=== PATIENT | female | born 2005 | race Caucasian/White ===

== ENCOUNTER 2024-02-07 08:58 | Emergency (ER) | payer MEDICAID ==
[~2024-02-07] VITALS: Ht 172.7 cm; Wt 100.0 kg
[2024-02-07 09:06] VITALS: O2SAT 99
[2024-02-07 11:14] LABS: BASOPHILS % 0.8 % (0.0-2.0); EOSINOPHILS % 3.4 % (0.0-5.0); HEMATOCRIT. 37.6 % (36.0-48.0); HEMOGLOBIN. 12.1 g/dL (12.0-16.0); LYMPHOCYTES % 26.2 % (20.0-50.0); MEAN CORPUSCULAR HEMOGLOBIN 29.6 pg (28.0-32.0); MEAN CORPUSCULAR HGB CONC 32.3 g/dL (31.0-37.0); MEAN CORPUSCULAR VOLUME 91.5 fL (81.0-99.0); MEAN PLATELET VOLUME 7.6 fl (7.4-10.4); MONOCYTES % 8.2 % (2.0-8.0); NEUTROPHILS % 61.4 % (40.0-76.0); PLATELET 264 x1000/uL (130-400); RED BLOOD CELL COUNT 4.11 mill/uL (4.2-5.4); RED CELL DISTRIBUTION WIDTH 13.3 % (11.6-14.6); WHITE BLOOD COUNT 7.8 x1000/uL (4.5-11.0)
[2024-02-07 11:25] LABS: CARBON DIOXIDE 28 mEq/L (21-32); CHLORIDE 108 mEq/L (98-107); POTASSIUM 4.2 mEq/L (3.5-5.1); SODIUM 141 mEq/L (136-145)
[2024-02-07 11:26] LABS: CALCIUM 9.6 mg/dL (8.7-10.4)
[2024-02-07 11:31] LABS: CREATININE 0.7 mg/dL (0.6-1.0); GLUCOSE 99 mg/dL (70-105); UREA NITROGEN BLOOD 7 mg/dL (9-23)
[2024-02-07 12:10] LABS: ETHANOL BLOOD < 10 mg/dL (<10)
[2024-02-07 15:20] VITALS: BP 113/70; PULSE 71; RESP 15; TEMP 98.2
== END 2024-02-07 15:22 ==
LOC: ER 08:58
DX: F10.10 Alcohol abuse, uncomplicated (principal); Z04.6 Encounter for general psychiatric examination, requested by authority; Y90.0 Blood alcohol level of less than 20 mg/100 ml
CPT/HCPCS: 80048; 80320; 85025; 36415; 99285; Z7610; G0480